=== PATIENT | female | born 1955 | race Hispanic/Latino ===

== ENCOUNTER → 2022-11-27 | Outpatient (CLI) | payer MEDICARE ==
[~2022-11-27] MED LIST: AMLO-258 PO; ATOR40TA71 PO; CANA300T PO; DULO30CA52 PO; HYDR25TA PO; INSU100V12 SQ; LOSA100T58 PO; METF-446 PO; PIOG15TA66 PO; victoza SQ
== END | disposition home or self-care (01) ==
LOC: RAH 08:45
PROVIDERS: ATTEND Internal Medicine
DX: E11.21 Type 2 diabetes mellitus with diabetic nephropathy (principal)
CPT/HCPCS: 76770

== ENCOUNTER 2022-12-01 08:16 | Day surgery (SDC) | payer MEDICARE ==
[2022-11-26 12:24] VITALS: BP 146/70
[2022-11-26 12:28] LABS: BASOPHILS % (AUTO) 1.1 % (0.0-5.0); EOSINOPHILS % (AUTO) 1.5 % (0.0-8.0); HEMATOCRIT 44.5 % (36-48); LYMPHOCYTES % (AUTO) 33.8 % (21.0-51.0); MEAN CORPUSCULAR HEMOGLOBIN 27.9 pg (27.0-33.0); MEAN CORPUSCULAR HGB CONC 32.8 g/dL (32.0-36.0); MEAN CORPUSCULAR VOLUME 84.9 fL (79-99); MONOCYTES % (AUTO) 7.4 % (3.0-13.0); NEUTROPHILS % (AUTO) 55.9 % (40.0-77.0); PLATELET COUNT (AUTO) 317 K/uL (130-400); RED BLOOD CELL COUNT(AUTO) 5.24 MIL/uL (4.00-5.50); RED CELL DISTRIBUTION WIDTH 14.7 % (11.0-15.5); WHITE BLOOD COUNT (AUTO) 7.5 K/uL (4.8-10.8)
[2022-11-26 12:44] LABS: ALBUMIN 3.6 g/dL (3.5-5.0); POTASSIUM 4.2 mmol/L (3.5-5.1); TOTAL PROTEIN, SERUM 7.4 g/dL (6.0-8.3)
[2022-11-26 12:47] LABS: APPEARANCE,URINE CLEAR (CLEAR); BILIRUBIN,URINE NEGATIVE (NEGATIVE); COLOR,URINE YELLOW (YELLOW); GLUCOSE, URINE (UA) >=1000 mg/dL (NEGATIVE); KETONES,URINE NEGATIVE (NEGATIVE); LEUKOCYTE ESTERASE ,URINE NEGATIVE Leu/uL (NEGATIVE); NITRATE,URINE NEGATIVE (NEGATIVE); OCCULT BLOOD,URINE NEGATIVE (NEGATIVE); PH,URINE 5.5 (5.0-8.0); PROTEIN,URINE 70 mg/dL (NEGATIVE); UROBILINOGEN,URINE 0.2 mg/dL (0.2-1.0)
[2022-11-26 12:51] LABS: RBC,URINE 0-1 /HPF (0-1)
[2022-11-26 12:54] LABS: INR 0.93 (0.85-1.15); PROTHROMBIN TIME 10.1 SEC (9.6-11.6)
[2022-11-26 12:55] LABS: PARTIAL THROMBOPLASTIN TIME 26.2 SEC (26.3-35.5)
[2022-12-01] VITALS (19 sets, daily range): BP systolic 100–128; BP diastolic 47–62
[~2022-12-01] VITALS: Ht 170.2 cm; Wt 106.2 kg
[~2022-12-01 08:16] MED LIST changes: +0.9%NACL 1000ML 1,000 ML IV SCH
[2022-12-01] MEDS ORDERED: BUPIVACAINE/PF 0.25% 10ML VIAL IJ ONE (09:09)
[2022-12-01] MEDS: CEFAZOLIN SODIUM 1 GM VIAL IVPB SCH ×2 (09:29→11:50)
[2022-12-01] MEDS ORDERED: PROPOFOL 10 MG/ML 20ML VIAL IV ONE (11:08)
[2022-12-01] MEDS ORDERED: FENTANYL CITRATE PF 50 MCG/1 ML 2ML VIAL ONE (11:08)
[2022-12-01] MEDS ORDERED: SUCCINYLCHOLINE CHLORIDE 20 MG/ML 10 ML VIAL ONE (11:08)
[2022-12-01] MEDS ORDERED: ROCURONIUM 10MG/1ML SYR 10 MG/ML ML ONE (11:09)
[2022-12-01] MEDS ORDERED: MIDAZOLAM HCL 1 MG/ML 2ML VIAL ONE (11:09)
[2022-12-01] MEDS ORDERED: GLYCOPYRROLATE 1 MG/5 ML SYRINGE ONE ×2 (11:42→13:11)
[2022-12-01] MEDS ORDERED: NEOSTIGMINE 5MG/5ML SYR IV ONE (12:17)
[2022-12-01] MEDS ORDERED: MEPERIDINE-PF 25 MG/ML SYG ONE (12:45)
[2022-12-01] MEDS ORDERED: KETOROLAC 30MG VIAL (30MG/ML) ONE (12:45)
[2022-12-01] MEDS ORDERED: ONDANSETRON 4MG INJ ONE (12:45)
== END 2022-12-01 14:35 | disposition home or self-care (01) ==
LOC: DAH 08:16
PROVIDERS: ATTEND Student in an Organized Health Care Education/Training Program
DX: D48.5 Neoplasm of uncertain behavior of skin (principal); D17.21 Benign lipomatous neoplasm of skin and subcutaneous tissue of right arm; D17.23 Benign lipomatous neoplasm of skin and subcutaneous tissue of right leg; E66.01 Morbid (severe) obesity due to excess calories; I10 Essential (primary) hypertension; E11.9 Type 2 diabetes mellitus without complications; F32.A Depression, unspecified; Z20.822 Contact with and (suspected) exposure to COVID-19; Z79.4 Long term (current) use of insulin; Z79.899 Other long term (current) drug therapy; Z90.710 Acquired absence of both cervix and uterus; Z90.49 Acquired absence of other specified parts of digestive tract; Z86.16 Personal history of COVID-19; Z80.0 Family history of malignant neoplasm of digestive organs; Z80.8 Family history of malignant neoplasm of other organs or systems; Z68.36 Body mass index [BMI] 36.0-36.9, adult
CPT/HCPCS: 80053; 85025; 85610; 85730; 87426; 81001; 36415; 71045; 93005; 21552; 28039; 82948 ×2; G0168; A6260; A4663; A4452 ×2; J3010; J0690; J3490 ×3; J2710; J0330; J7030; J2250; J2704; J2405; J1885; J2175; A4649; A4215; A4223; A6402; A6253; A4222; A4221